=== PATIENT | female | born 1955 | race Caucasian/White ===

== ENCOUNTER 2019-06-25 22:14 | Inpatient (IN) | payer MEDICARE, OTHER ==
[~2019-06-25] VITALS: Ht 160 cm; Wt 72.6 kg
--- NOTE | 2019-06-25 22:14 | NUR ---
"BIB EMS C/O GENERALIZED WEAKNESS X2 DAYS. (+) ORTHOSTATIC PER EMS REPORT" PT TO BED 7, PT AAOX4, -SOB, NAD NOTED, PENDING MD MEJÍA
[2019-06-25] MEDS ORDERED: IV NS 0.9% 1,000 ML BAG IV ONE (22:30)
[2019-06-25 22:43] LABS: BASOPHILS % (AUTO) 0.4 % (0.0-2.0); EOSINOPHILS % (AUTO) 0.3 % (0.0-6.0); LYMPHOCYTES # (AUTO) 1.3 /CMM (0.8-4.8); LYMPHOCYTES % (AUTO) 11.8 % (20.0-44.0); MEAN CORPUSCULAR HGB CONC 31 g/dl (31.0-36.0); MEAN CORPUSCULAR VOLUME 80 fL (82-100); MONOCYTES # (AUTO) 0.8 /CMM (0.1-1.30); MONOCYTES % (AUTO) 7.7 % (2.0-12.0); NEUTROPHILS # (AUTO) 8.7 /CMM (1.8-8.9); NEUTROPHILS % (AUTO) 79.8 % (43.0-81.0); PLATELET COUNT (AUTO) 366 /CMM (150-450); WHITE BLOOD COUNT (AUTO) 10.9 K/uL (4.3-11.0)
[2019-06-25 22:47] LABS: RED BLOOD CELL COUNT(AUTO) 1.58 MIL/uL (4.0-5.2)
[2019-06-25 22:48] LABS: HEMATOCRIT 13 % (33-45); HEMOGLOBIN 3.9 g/dL (11.5-14.8)
--- NOTE | 2019-06-25 23:00 | NUR ---
PT AMBULATED TO BATHROOM, PT UNABLE TO GIVE URINE SAMPLE AT THIS TIME, DR. LISBETH FINLEY.
[2019-06-25 23:05] LABS: ALANINE AMINOTRANSFERASE 12 U/L (12-78); ALBUMIN 2.5 g/dL (3.4-5.0); ALKALINE PHOSPHATASE 58 U/L (46-116); ASPARTATE AMINOTRANSFERASE 9 U/L (15-37); BILIRUBIN,DIRECT 0.1 mg/dL (0.0-0.2); BILIRUBIN,TOTAL 0.2 mg/dL (0.2-1.0); CALCIUM, SERUM 8.1 mg/dL (8.5-10.1); CARBON DIOXIDE 23 mmol/L (21-32); CHLORIDE 100 mmol/L (98-107); CREATININE 1.4 mg/dL (0.6-1.3); POTASSIUM 4.3 mmol/L (3.5-5.1); SODIUM SERUM 129 mmol/L (136-145); TOTAL PROTEIN, SERUM 5.5 g/dL (6.4-8.2); UREA NITROGEN, BLOOD 21 mg/dL (7-18)
--- NOTE | 2019-06-25 23:08 | NUR ---
PT REFUSED CT, DR BOB AWARE
[2019-06-25 23:13] LABS: GLUCOSE 419 mg/dL (74-106)
[2019-06-25 23:24] LABS: LYMPHOCYTES % (MANUAL) 10 % (16-48); MONOCYTES % (MANUAL) 5 % (0-11.0); NEUTROPHILS % (MANUAL) 85 (42-76)
[2019-06-26] VITALS (33 sets, daily range): BP systolic 99–150; BP diastolic 33–87
--- NOTE | 2019-06-26 00:05 | NUR ---
BLOOD TRANSFUSION STARTED, CONSENTS SIGNED, 2ND RN VERIFIED, PT AAOX4, -SOB, VSS.
[2019-06-26] MEDS ORDERED: IV 1/2NS 1000 ML 1,000 ML IV PRN ×2 (00:29→01:45)
[2019-06-26] MEDS ORDERED: diphenhydrAMINE HCL 25 MG CAPSULE PO PRN (00:30)
[2019-06-26] MEDS ORDERED: *INSULIN REGULAR(HUMULIN R)HUM 100 UNIT/ML VIAL SQ PRN (00:30)
[2019-06-26] MEDS ORDERED: Z GUARD REMEDY 2 OZ OINT TP PRN (00:30)
[2019-06-26] MEDS ORDERED: HYDROCODONE/APAP 5/325MG 1 EACH TABLET PO PRN (00:30)
[2019-06-26] MEDS ORDERED: ZOLPIDEM TARTRATE 5 MG TABLET PO PRN (00:30)
[2019-06-26] MEDS ORDERED: MORPHINE SULFATE INJ 2 MG/ML DISP.SYRIN IV PRN (00:30)
[2019-06-26] MEDS ORDERED: MAGNESIUM HYDROXIDE 30 ML UDC PO PRN (00:30)
[2019-06-26] MEDS ORDERED: DEXTROSE 50%-WATER 50 ML DISP.SYRIN IV PRN (00:30)
[2019-06-26] MEDS ORDERED: MAG HYDROX/AL HYDROX/SIMETH 30 ML UDC PO PRN (00:30)
[2019-06-26] MEDS ORDERED: ONDANSETRON HCL/PF 4 MG/2 ML VIAL IVP PRN (00:30)
[2019-06-26] MEDS ORDERED: ACETAMINOPHEN 325 MG TABLET PO PRN (00:30)
--- NOTE | 2019-06-26 00:41 | NUR ---
REPORT GIVEN TO SCOUT ROCHA FOR SUNI PT WILL BE TRANSPORTED TO ICU VIA ACLS PROTOCOL
--- NOTE | 2019-06-26 01:06 | NUR ---
TEMPORARY OFFICE ASSISTANT NOTES RECEIVED PT ON BED, A/O X 4 ON ROOM AIR NO RESPIRATORY DISTRESS NOTED. ON TELE MONITOR SR. IV ACCESS ON RAC BOTH G 18 WITH BLOOD TRANSFUSION RUNNING. HEAD OF BED ELEVATED. SIDE RAILS UP. CALL LIGHT WITHIN REACH. BED ALARM ON. BED IN LOW AND LOCKED POSITION. WILL MONITOR PT CLOSELY.
--- NOTE | 2019-06-26 01:12 | NUR ---
PT TRANSPORTED TO ICU VIA ACLS PROTOCOL
--- NOTE | 2019-06-26 01:27 | NUR ---
FISH CULTURIST NOTES BT DONE AT 0110. CALLED LABS FOR ANOTHER 2 UNITS OF PRBC. WILL MONITOR PT CLOSELY.
[2019-06-26] MEDS ORDERED: INSULIN REGULAR, HUMAN 100 UNIT/ML 3 ML VIAL SQ STA (01:45)
[2019-06-26] MEDS: BLOOD SUGAR DIAGNOSTIC 1 EACH STRIP VI SCH ×3 (01:47→11:58)
--- NOTE | 2019-06-26 02:00 | NUR ---
ACOUSTICS TEACHER NOTE CALLED DIRECTOR PROSPECT REGARDING ACCUCHECK OF 494 MG/DL. GIVEN 15UNITS OF INSULIN PER DIRECTOR PROSPECT AND RECHECKED AFTER 30MINS. PT REFUSED REPEAT ACCUCHECK. DIRECTOR PROSPECT NOTIFIED.
[2019-06-26] MEDS ORDERED: BLOOD SUGAR DIAGNOSTIC 1 EACH STRIP IN ONE (02:15)
[2019-06-26] MEDS ORDERED: CALCIUM CARBONATE 500 MG TAB.CHEW PO PRN (03:00)
--- NOTE | 2019-06-26 04:35 | NUR ---
SHIPPING AND RECEIVING SPECIALIST NOTES PER TREE CHIPPER START IVF ONCE BLOOD TRANSFUSION IS DONE.
[2019-06-26 04:48] LABS: ALBUMIN 2.3 g/dL (3.4-5.0); BILIRUBIN,TOTAL 0.7 mg/dL (0.2-1.0); CREATININE 1.3 mg/dL (0.6-1.3); MAGNESIUM 2.1 mg/dL (1.8-2.4); PHOSPHORUS 3.6 mg/dL (2.5-4.9); POTASSIUM 4.3 mmol/L (3.5-5.1); TOTAL PROTEIN, SERUM 5.1 g/dL (6.4-8.2)
--- NOTE | 2019-06-26 04:53 | NUR ---
DELIVERY MERCHANDISER NOTES PT REFUSING CXR. SALES PROGRAM COORDINATOR VICE PRESIDENT OF COMMUNICATIONS NOTIFIED.
[2019-06-26 05:00] LABS: THYROID STIMULATING HORMONE 1.242 uIU/mL (0.358-3.74)
--- NOTE | 2019-06-26 05:05 | NUR ---
LUNCH TRUCK OPERATOR NOTES PT REFUSING INSULIN. BLOOD SUGAR OF 397MG/DL. CERTIFIED PROFESSIONAL MIDWIFE NOTIFIED.
[2019-06-26 07:17] LABS: BASOPHILS # (AUTO) 0.1 /CMM (0.0-0.2); BASOPHILS % (AUTO) 0.6 % (0.0-2.0); EOSINOPHILS % (AUTO) 0.5 % (0.0-6.0); HEMATOCRIT 21 % (33-45); LYMPHOCYTES # (AUTO) 1.5 /CMM (0.8-4.8); LYMPHOCYTES % (AUTO) 12.1 % (20.0-44.0); MEAN CORPUSCULAR HGB CONC 33 g/dl (31.0-36.0); MEAN CORPUSCULAR VOLUME 81 fL (82-100); MONOCYTES # (AUTO) 1.6 /CMM (0.1-1.30); MONOCYTES % (AUTO) 13.1 % (2.0-12.0); NEUTROPHILS # (AUTO) 9.2 /CMM (1.8-8.9); NEUTROPHILS % (AUTO) 73.7 % (43.0-81.0); PLATELET COUNT (AUTO) 309 /CMM (150-450); RED BLOOD CELL COUNT(AUTO) 2.63 MIL/uL (4.0-5.2); WHITE BLOOD COUNT (AUTO) 12.5 K/uL (4.3-11.0)
[2019-06-26 07:24] LABS: HEMOGLOBIN 6.9 g/dL (11.5-14.8)
--- NOTE | 2019-06-26 07:26 | NUR ---
DIRECTOR OF BILLING NOTES NO ACUTE CHANGES NOTED DURING THE SHIFT. PROVIDED COMFORT AND SAFETY. WILL ENDORSE TO THE AM NURSE FOR CONTINUITY OF CARE.
[2019-06-26] MEDS: PANTOPRAZOLE 40 MG TABLET.DR PO SCH ×2 (07:30→07:56)
[2019-06-26] MEDS: INSULIN REGULAR, HUMAN 100 UNIT/ML 3 ML VIAL SQ PRN ×2 (08:00→12:00)
--- NOTE | 2019-06-26 08:00 | NUR ---
ICU/RN AM SHIFT INITIAL NOTES RECEIVED PT AWAKE IN BED, PT A/O X 4, NO ACUTE CHANGE OF CONDITION OR BLEEDING NOTED. PT DENIES ANY SYMPTOMS. ON ROOM AIR SATURATING @ 100%, RESPIRATIONS EVEN & UNLABORED, LUNG SOUNDS CLEAR. ON TELE WITH SINUS RHYTHM, HR 91. WITH ON GOING IV INFUSION OF 1/2NS @ 100CC/HR, IV SITE PATENT WITH NO S/S OF INFECTION. BS CHECKED, 239, NO S/S OF HYPERGLYCEMIA, TO GIVEN 6 UNITS OF REGULAR INSULIN PER ORDERED SLIDING SCALE. PT IS COMFORTABLE, SCHEDULED AM MEDS TO BE GIVEN. CL WITHIN REACHED AND SAFETY MAINTAINED. ON GOING MONITORING.
[2019-06-26 08:06] LABS: EOSINOPHILS % (MANUAL) 2 % (0-4); LYMPHOCYTES % (MANUAL) 6 % (16-48); MONOCYTES % (MANUAL) 12 % (0-11.0); NEUTROPHILS % (MANUAL) 80 (42-76)
[2019-06-26] MEDS ORDERED: IMMUNOTHERAPY (08:23)
[2019-06-26] MEDS ORDERED: METF-442 PO (08:23)
[2019-06-26] MEDS ORDERED: [UNRECOGNIZED DRUG - REMARK] (08:23)
--- NOTE | 2019-06-26 08:35 | NUR ---
ICU/RN ROUNDS - DR. ARREOLA PT SEEN & EXAMINED BY DR. ARREOLA. NOTED NEW ORDERS, TO GIVE ONE MORE UNIT OF PRBC AND TO RESUMED PT ON METFORMIN IN ADDITION TO INSULIN. NEW ORDERS CARRIED OUT. MONITORING CONTINUED.
--- NOTE | 2019-06-26 08:45 | NUR ---
ICU/RN KALA UPDATED PT ABOUT HER PLAN OF CARE. PER PT WANTED TO GO HOME AND CONTINUE TX WITH HER OWN DOCTORS, ALSO SAID ALL SHE WANTED IS BLOOD AND WANT TO GO HOME AFTER TRANSFUSION. I EXPLAINED THAT SINCE THERE IS NO ORDER FOR HER TO BE DISCHARGE AT THIS TIME, THAT IS SHE INSISTED TO GO HOME, SHE WILL GO AGAINST MEDICAL ADVICE, I EXPLAINED THE RISKS AND BENEFITS OF GOING AMA, PT VERBALIZED UNDERSTANDING. WILL NOTIFY DR. ARREOLA AND CHARGE NURSE. MONITORING CONTINUED.
--- NOTE | 2019-06-26 08:53 | NUR ---
ICU/RN OFF MONITOR PT REFUSED TO USE BEDSIDE COMMODE AND REQUESTED TO USE REGULAR TOILET. PT DISCONNECTED TO MONITOR TO WALK TO TOILET WITH STEADY GAIT THEN RETURNED TO HER ROOM FOR SELF AM CARE. MONITORING CONTINUED.
[2019-06-26] MEDS ORDERED: METFORMIN 500 MG TABLET PO SCH (09:00)
--- NOTE | 2019-06-26 09:20 | NUR ---
ICU/RN ROUNDS - DR. DAMON PT SEEN & EXAMINED BY DR. DAMON. NO NEW ORDER RECEIVED AT THIS TIME.
--- NOTE | 2019-06-26 09:43 | NUR ---
ICU/RN HEMATURIA I WANTED TO SEE IF PT STILL HAS HEMATURIA BUT SHE ALREADY FLUSHED TOILET. PER PT SHE URINATED BRIGHT RED URINE BUT NOT MUCH BEFORE. NOTIFIED PRIMARY MD.
--- NOTE | 2019-06-26 10:40 | NUR ---
ICU/RN BLOOD TRANSFUSION TRANSFUSION OF 1 UNIT PRBC BEGAN. ON GOING MONITORING.
--- NOTE | 2019-06-26 12:30 | NUR ---
MS1/RN TRANSFUSION - COMPLETED PT TOLERATED BLOOD TRANSFUSION. NO ADVERSE REACTION TO TRANSFUSION DURING AND END OF TRANSFUSION. CBC TO BE ORDERED FOR 1400. MONITORING CONTINUED.
[2019-06-26 14:14] LABS: BASOPHILS # (AUTO) 0.1 /CMM (0.0-0.2); BASOPHILS % (AUTO) 0.6 % (0.0-2.0); EOSINOPHILS % (AUTO) 1.9 % (0.0-6.0); HEMATOCRIT 23 % (33-45); HEMOGLOBIN 7.4 g/dL (11.5-14.8); LYMPHOCYTES # (AUTO) 1.4 /CMM (0.8-4.8); LYMPHOCYTES % (AUTO) 13.7 % (20.0-44.0); MEAN CORPUSCULAR HGB CONC 33 g/dl (31.0-36.0); MEAN CORPUSCULAR VOLUME 80 fL (82-100); MONOCYTES # (AUTO) 1.2 /CMM (0.1-1.30); MONOCYTES % (AUTO) 11.6 % (2.0-12.0); NEUTROPHILS # (AUTO) 7.1 /CMM (1.8-8.9); NEUTROPHILS % (AUTO) 72.2 % (43.0-81.0); PLATELET COUNT (AUTO) 273 /CMM (150-450); RED BLOOD CELL COUNT(AUTO) 2.85 MIL/uL (4.0-5.2); WHITE BLOOD COUNT (AUTO) 9.9 K/uL (4.3-11.0)
--- NOTE | 2019-06-26 15:33 | NUR ---
MS1/RN AMA NOTIFIED PT THE LATEST BLOOD COUNT. PER PT STILL WANTS TO GO AMA AND WANT TO SEE HER OWN DOCTOR, DR. ARREOLA IS AWARE WELL CHARGE NURSE. PT WILL BE PICKED-UP BY HER NEIGHBOR MARCIA HULL @ 1600. Addendum: 06/26/19 at 1545 by BEREKET PARKER RN ADDENDUM: PT SIGNED AMA FORM, RISK AND BENEFITS EXPLAINED, PT VERBALIZED UNDERSTANDING.
--- NOTE | 2019-06-26 17:08 | NUR ---
MS1/RN AMA - DISCHARGE IV SITES REMOVED, PRESSURE DRESSING APPLIED, NO S/S OF INFECTION, ID BANDS REMOVED. PERSONAL BELONGINGS RETURNED, INVENTORY LOG SIGNED OFF. PT LEFT MS1 UNIT ACCOMPANIED BY HER NEIGHBOR MARCIA, PT WALKED OUT OF UNIT WITH STEADY GAIT TO AN AWAITING PRIVATE CAR.
== END 2019-06-26 17:15 | disposition left against medical advice (07) | DRG 686 ==
LOC: ER 22:17 → ICU 06-26 00:24 → MEDSG1 06-26 12:21
PROVIDERS: ADMIT Nurse Practitioner Acute Care; ATTEND Internal Medicine
PROC: 30233N1 Transfusion of Nonautologous Red Blood Cells into Peripheral Vein, Percutaneous Approach (ICD-10-PCS; principal; 2019-06-26)
DX: C67.9 Malignant neoplasm of bladder, unspecified (principal); E43 Unspecified severe protein-calorie malnutrition; N17.0 Acute kidney failure with tubular necrosis; D50.9 Iron deficiency anemia, unspecified; E11.65 Type 2 diabetes mellitus with hyperglycemia; N18.9 Chronic kidney disease, unspecified; F17.210 Nicotine dependence, cigarettes, uncomplicated; Z79.84 Long term (current) use of oral hypoglycemic drugs; E88.09 Other disorders of plasma-protein metabolism, not elsewhere classified; Z91.19 Patient's noncompliance with other medical treatment and regimen; Z68.28 Body mass index [BMI] 28.0-28.9, adult; I12.9 Hypertensive chronic kidney disease with stage 1 through stage 4 chronic kidney disease, or unspecified chronic kidney disease; Z79.899 Other long term (current) drug therapy; D63.0 Anemia in neoplastic disease
CPT/HCPCS: 36415; 80048-TC; 80053-TC; 80061-TC; 80076-TC; 82962-TC; 83735-TC; 84100-TC; 84443-TC; 84484-TC; 85025-TC; 85610-TC; 86850-TC; 86921-TC; 87081-TC; G0378; J1815; J3490; J7050; P9016-BL